=== PATIENT | female | born 1975 | race Caucasian/White ===

== ENCOUNTER 2022-11-15 19:29 | Emergency (ER) | payer SELFPAY ==
[~2022-11-15] VITALS: Ht 154.9 cm; Wt 68.0 kg
[2022-11-15] MEDS ORDERED: NITROGLYCERIN 0.4 MG/TAB BOTTLE SL ONE (20:00)
[2022-11-15] MEDS ORDERED: ASPIRIN 325 MG TABLET PO ONE (20:00)
[2022-11-15] MEDS ORDERED: ASPIRIN 325 MG TABLET ONE (20:27)
[2022-11-15] MEDS ORDERED: NITROGLYCERIN 0.4 MG/TAB BOTTLE ONE (20:27)
[2022-11-15 20:32] LABS: BASOPHILS % (AUTO) 0.2 % (0.0-2.0); EOSINOPHILS % (AUTO) 2.8 % (0.0-6.0); HEMATOCRIT 39 % (33-45); LYMPHOCYTES # (AUTO) 1.7 K/uL (0.8-4.8); MEAN CORPUSCULAR HGB CONC 34 g/dl (31.0-36.0); MEAN CORPUSCULAR VOLUME 87 fL (82-100); MONOCYTES # (AUTO) 0.7 K/uL (0.1-1.30); MONOCYTES % (AUTO) 7.2 % (2.0-12.0); NEUTROPHILS % (AUTO) 71.8 % (43.0-81.0); PLATELET COUNT (AUTO) 312 K/uL (150-450); RED BLOOD CELL COUNT(AUTO) 4.47 MIL/uL (4.0-5.2); WHITE BLOOD COUNT (AUTO) 9.7 K/uL (4.3-11.0)
[2022-11-15 20:41] LABS: CALCIUM, SERUM 9.6 mg/dL (8.5-10.1); CARBON DIOXIDE 28 mmol/L (21-32); CHLORIDE 104 mmol/L (98-107); CREATININE 0.5 mg/dL (0.6-1.3); GLUCOSE 116 mg/dL (74-106); SODIUM SERUM 137 mmol/L (136-145); UREA NITROGEN, BLOOD 10 mg/dL (7-18)
--- NOTE | 2022-11-15 20:44 | NUR ---
Pt is noted alert, responsive as she is brought in by C/O Chest Pain, Radiating to back with Tighiness these AM with Left Arm Numbness. Pt care continue as MD at bedside while awaits orders.
[2022-11-15 22:17] VITALS: BP 132/78
--- NOTE | 2022-11-15 22:19 | NUR ---
Pt is noted off the unit as she is been dsicharge to home with all discharge instruction given and IV Access dsicontinue with no S/S off distress or C/O pain.
== END 2022-11-15 22:18 | disposition home or self-care (01) ==
LOC: ER 19:35
DX: R07.9 Chest pain, unspecified (principal); F41.9 Anxiety disorder, unspecified
CPT/HCPCS: 36415; 71045-TC; 80048-TC; 83880; 84484-TC; 85025-TC; 85378-TC